=== PATIENT | male | born 1990 | race Caucasian/White ===

== ENCOUNTER 2016-08-07 22:51 | Emergency (ER) | payer SELFPAY ==
[~2016-08-07] VITALS: Ht 167.6 cm; Wt 70.0 kg
[2016-08-07] MEDS ORDERED: ONDANSETRON PF 4 MG/2 ML VIAL. ONE (23:27)
[2016-08-07] MEDS ORDERED: IV NORMAL SALINE 1,000ML 1,000 ML ONE (23:42)
[2016-08-07] MEDS ORDERED: ONDANSETRON PF 4 MG/2 ML VIAL. IV ONE (23:45)
--- NOTE | 2016-08-08 00:38 | PHYS DOC ---
General Chief Complaint: NAUSEA/VOMITING/DIARRHEA Stated Complaint: VOMITING,DIARRHEA,HEADACHE Time Seen by MD: 00:26 Source: patient, family Problems: History of Present Illness Initial Comments Patient here with sister for nausea vomiting or abdominal pain. Patient says it started earlier today. He says he had some black olives about 2:00, and about a half hour later he began to feel ill. He says he has had chills but no distinct fever. There is no runny nose or sore throat. He has no chest pain or shortness of breath. He's had copious episodes of emesis today, upwards of 10 episodes, without blood or bilious Valentin. He's been unable tolerate any by mouth food or fluids since onset. He also has severe crampy abdominal discomfort which is actually better now after administration of some IV fluids prior to physician evaluation. He's had 10-15 episodes of diarrhea as well without blood or loose chill. There is no change in bladder habits. He denies any focal extremity or neurologic complaints. Patient's done nothing at home for this and notes no factors other than the olives which may have increased or decreased his symptoms. He has no known sick contacts there is no other bad or spoiled food. At time of physician evaluation patient's already received some antiemetics and IV fluids. He's had no further emesis and no further diarrhea here in the ED. Patient's past medical history is otherwise unremarkable. He states he is a nonsmoker and nonuser of ethanol. Allergies: Coded Allergies: No Known Drug Allergies (Unverified , 10/10/15) Past Medical History Medical History: no pertinent history Social History Smoker: non-smoker Alcohol: none Review of Systems All Other Systems: Reviewed and Negative Physical Exam General Appearance: WD/WN, no apparent distress Neck: full range of motion, supple, normal inspection Respiratory: lungs clear, normal breath sounds, no respiratory distress Cardiovascular: regular rate, rhythm, no edema, no gallop Gastrointestinal: soft, no organomegaly, tenderness Back: no CVA tenderness, no vertebral tenderness Extremities: non-tender, normal inspection, no pedal edema Neurologic/Psychiatric: alert, normal mood/affect, oriented x 3 Skin: normal color Lymphatic: no adenopathy Comments Generally this is a well-developed well-nourished male in no acute distress. He is initially sleeping in the ED. He rouses easily, and when he does he complains of 7 out of 10 pain. Vitals are as noted. Pertinent finds on physical exam shows the chest to be clear to auscultation bilaterally. Cardiac exam shows regular rate and rhythm without murmur. The abdomen is soft. He is mildly diffusely tender without masses, organomegaly, or perineal findings. Back shows no CVA tenderness. Extremities are clear. He is awake alert and oriented when roused from sleep. Remainder of physical exam is clinically unremarkable. Orders, Labs, Meds Old charts note a single prior ER visit for groin pain. Labs today show mildly elevated white count with a left shift. I profile is stable. Acetone is negative. Abdominal series films show no acute changes per the emergency physician. 0135 Patient resting in the ER. He still complained of headache and some abdominal pain, but says he feels better. He's had no further vomiting or diarrhea in the ER, and just some nausea when he was moved for his abdominal x- ray. He was able tolerate by mouth ice chips here in the ED. I discussed with the patient is uncertain cause of his nausea vomiting or diarrhea. This may be food intolerance from the [place], or may be related to a gastrointestinal illness. In the event, his lungs he is able tolerate by mouth fluids, we have the option for discharge. He does look like he still feels fairly well, and I did offer them the option to be admitted and stay for further IV fluids and medications here in the hospital with this. He states he really wants to try to handle this at home if his labs look okay if he is not having anymore for vomiting. Apparently to his daughter's birthday and he feels very bad that he was in the bathroom most of the day. He does have a sister here who can take care of his daughter for a while is recovering. We will go ahead and give him prescriptions for Phenergan and Bentyl. He is very concerned about costs I will try to write for older and cheaper medications. He voices understanding of discharge plans including rest, increasing fluids, use of Advil or Tylenol as needed for fever or pain. He also voices understanding need to return immediately if worsening anyway, and that were happy to admit him as needed. He' ll also follow up with primary care. He does look unwell, resulted in the offer of admission, but given the situation of the day and his daughter's birthday think is making reasonable decisions for himself. As noted, he does voiced understanding need to return immediately if worsening anyway, and he can certainly be admitted at that time. He looks mildly unwell but stable, in no acute stress, and okay for discharge home per his preference. WILBERT SEO MD Aug 08, 2016 00:38
[2016-08-08 00:57] LABS: BASO # 0.1 x10^3/uL (0.0-0.2); BASO % 0 % (0-3); EOS # 0.1 x10^3/uL (0.0-0.7); EOS % 1 % (0-3); HEMATOCRIT 50.3 % (39.0-53.0); HEMOGLOBIN 17.1 g/dL (13.0-17.5); LYMPH # 0.5 x10^3/uL (1.0-4.8); LYMPH % 3 % (24-48); MEAN CORPUSCULAR HEMOGLOBIN 30 pg (25-35); MEAN CORPUSCULAR HGB CONC 34 g/dL (31-37); MEAN CORPUSCULAR VOLUME 87 fL (79-100); MONO # 0.8 x10^3/uL (0.0-1.1); MONO % 5 % (0-9); NEUT # 14.3 x10^3uL (1.8-7.7); NEUT % 90 % (31-73); PLATELET COUNT 294 x10^3/uL (140-400); RED BLOOD COUNT 5.77 x10^6/uL (4.30-5.70); RED CELL DISTRIBUTION WIDTH 13.3 % (11.5-14.5); WHITE BLOOD COUNT 15.8 x10^3/uL (4.0-11.0)
[2016-08-08] MEDS ORDERED: ONDANSETRON PF 4 MG/2 ML VIAL. IV ONE (01:00)
[2016-08-08] MEDS ORDERED: IV NORMAL SALINE 1,000ML 1,000 ML IV ONE ×3 (01:00)
[2016-08-08 01:04] LABS: ALBUMIN 4.8 g/dL (3.4-5.0); ALBUMIN/GLOBULIN RATIO 1.2 (1.0-1.7); CALCIUM 9.9 mg/dL (8.5-10.1); CREATININE 0.9 mg/dL (0.7-1.3); GFR 102.8; POTASSIUM 3.5 mmol/L (3.5-5.1); TOTAL BILIRUBIN 1.2 mg/dL (0.2-1.0); TOTAL PROTEIN 8.7 g/dL (6.4-8.2)
[2016-08-08 01:24] LABS: % BANDS 13 % (0-9); % LYMPHS 4 % (24-48); % MONOS 3 % (0-10); % SEGS 80 % (35-66); PLT ESTIMATE ADEQUATE (ADEQUATE)
[2016-08-08 01:55] VITALS: BP 100/50
[2016-08-08] MEDS ORDERED: DICYCLOMINE HCL 20 MG TABLET ONE (01:59)
[2016-08-08] MEDS ORDERED: DICYCLOMINE HCL 10 MG CAPSULE PO ONE (02:00)
[2016-08-08] MEDS ORDERED: PROMETHAZINE 25 MG TABLET. PO ONE (02:00)
[2016-08-08] MEDS ORDERED: DICYCLOMINE HCL 20 MG TABLET PO ONE (02:30)
--- NOTE | 2016-08-08 09:47 | RAD ---
Abdomen, 2 views, 08/08/2016: History: Abdominal pain with vomiting The abdominal gas pattern is unremarkable without evidence of obstruction. No free air seen in the abdomen. There is no evidence of organomegaly. Lower pelvic calcifications are compatible with phleboliths. The lung bases are clear. IMPRESSION: No acute abdominal abnormality is detected.
== END 2016-08-08 02:05 | disposition home or self-care (01) ==
LOC: ER 22:51
DX: R10.9 Unspecified abdominal pain (principal); R11.2 Nausea with vomiting, unspecified; R19.7 Diarrhea, unspecified; R51 Headache
CPT/HCPCS: 36415; 74020; 80053; 82010; 82150; 83690; 85007; 85027; 96361; 96374; 96375; 99285; J2405; Q0169; J7030

== ENCOUNTER 2016-11-09 13:35 | Emergency (ER) | payer OTHER ==
[2016-11-09 13:45] VITALS: BP 122/82
[2016-11-09] MEDS ORDERED: PENI500T PO (14:32)
--- NOTE | 2016-11-09 14:32 | PHYS DOC ---
Past History Past Medical History: No Pertinent History Past Surgical History: No Surgical History Alcohol Use: Rarely Drug Use: None Adult General Chief Complaint Chief Complaint: TOOTH ACHE OR PAIN [facility] Patient is a 26-year-old male who states he had 3 teeth pulled on , November 06. He had cavities in teeth 4 and 5, and they went ahead and pulled his wisdom tooth #1 while they were there because it was impacted. He was not started on antibiotics, he was given Tylenol No. 3, which is not helping the pain. He is having a lot of pain. He went the next day to the ER at [facility] to be seen for pain but states he waited 4 hours and ended up leaving without being seen. He has not been having fevers. He has not been taking ibuprofen. Patient has no chronic medical problems and is in good general health. He has no known allergies. Review of Systems Review of Systems Constitutional: Denies fever or chills [] Eyes: Denies change in visual acuity, redness, or eye pain [] HENT: Denies nasal congestion or sore throat [] Respiratory: Denies cough or shortness of breath [] Cardiovascular: No additional information not addressed in [facility] [] GI: Denies abdominal pain, nausea, vomiting, bloody stools or diarrhea [] : Denies dysuria or hematuria [] Musculoskeletal: Denies back pain or joint pain [] Integument: Denies rash or skin lesions [] Neurologic: Denies headache, focal weakness or sensory changes [] Endocrine: Denies polyuria or polydipsia [] Allergies Allergies Allergies Coded Allergies Type Severity Reaction Last Updated Verified No Known Drug Allergies 10/10/15 No Physical Exam Physical Exam Constitutional: Well developed, well nourished, no acute distress, non-toxic appearance. Talking without difficulty, swallowing without difficulty, no acute distress. HENT: Normocephalic, atraumatic, bilateral external ears normal, oropharynx moist, no oral exudates, nose normal. Mild amount of swelling on the right side of the face. No redness or warmth. Oral exam: Clot present in the site of dental extractions. No purulent drainage. No significant swelling of the surrounding gingiva. Eyes: conjunctiva normal, no discharge. [] Neck: Normal range of motion, no stridor. [] Skin: Warm, dry, no erythema, no rash. [] Extremities: No tenderness, no cyanosis, no clubbing, ROM intact, no edema. [] Neurologic: Alert and oriented X 3, normal motor function, normal sensory function, no focal deficits noted. [] EKG EKG [] Radiology/Procedures Radiology/Procedures [] Course & Med Decision Making Course & Med Decision Making Pertinent Labs and Imaging studies reviewed. (See chart for details) 26-year-old male who had 3 teeth pulled 4 days ago. He is concerned about the amount of swelling. I reassured him that it is normal to have a considerable amount of pain and swelling after having 3 molars extracted. We will start him on penicillin. Encouraged him to continue the saltwater rinses. I advised ibuprofen 800 mg every 8 hours for pain. To follow up with his dentist if not improving in the next 2-3 days. Note the patient showed me a "piece of tooth" that he had "pulled out" of one of his sites. It did not specifically appear to be a piece of tooth to me but I advised him if a piece of tooth did break off that he should discuss this with his dentist. [] Dragon Disclaimer Dragon Disclaimer This chart was dictated in whole or in part using Voice Recognition software in a busy, high-work load, and often noisy Emergency Department environment. It may contain unintended and wholly unrecognized errors or omissions. Departure Departure: Impression: Primary Impression: Pain, dental Disposition: 01 HOME, SELF-CARE Condition: STABLE Referrals: PCP,NO (PCP) Additional Instructions: Continue gentle swishes with salt water as you have been doing. Call for follow-up appointment with your dentist. Ibuprofen 800 mg (four OTC 200 mg tabs) every 8 hours for pain. We will start penicillin for possible infection. Take as directed. Scripts Penicillin V Potassium (PENICILLIN V POTASSIUM) 500 Mg Tablet 1 TAB PO TID for dental infection, #30 TAB Prov: SHAY SARKAR MD 11/09/16 SHAY SARKAR MD Nov 09, 2016 14:32
[2016-11-10] MEDS ORDERED: HYDR-971 PO (11:17)
== END 2016-11-09 14:35 | disposition home or self-care (01) ==
LOC: ER 13:35
DX: K08.89 Other specified disorders of teeth and supporting structures (principal); Z98.818 Other dental procedure status
CPT/HCPCS: 99283

== ENCOUNTER 2016-11-10 10:45 | Emergency (ER) | payer OTHER ==
[~2016-11-10] VITALS: Ht 172.7 cm; Wt 70.0 kg
[~2016-11-10 10:45] MED LIST: PENI500T PO
[2016-11-10 11:01] VITALS: BP 128/84
[2016-11-10] MEDS ORDERED: HYDR-971 PO (11:17)
--- NOTE | 2016-11-10 11:17 | PHYS DOC ---
Past History Past Medical History: No Pertinent History Past Surgical History: Other Alcohol Use: None Drug Use: None Adult General Chief Complaint Chief Complaint: DENTAL PROBLEM HPI HPI Patient is a 26 year old male who presents with dental pain. The patient reports he is 3 days s/p dental extraction of teeth 1, 4, 5 by a local dentist. He reports severe pain & swelling since time of extraction & has been unable to follow up due to holiday weekend. Seen here yesterday & given ibuprofen but states it's not helping. He denies fevers, vomiting, drainage. Review of Systems Review of Systems Constitutional: Denies fever HENT: Reports dental pain. Respiratory: Denies cough or shortness of breath Cardiovascular: Denies chest pain GI: Denies abdominal pain, nausea, vomiting Musculoskeletal: Denies back pain or joint pain Integument: Denies rash Neurologic: Denies headache Allergies Allergies Allergies Coded Allergies Type Severity Reaction Last Updated Verified No Known Drug Allergies 11/10/16 No Physical Exam Physical Exam Constitutional: Well developed, well nourished, appears to be in pain, non- toxic appearance. HENT: Normocephalic, atraumatic, bilateral external ears normal, oropharynx moist, absence of teeth 1, 4, 5, with mild gingival erythema, no abscess, mild right sided jaw swelling, no trismus, nose normal. Eyes: conjunctiva normal, no discharge. Neck: supple, no stridor. Cardiovascular: no edema. Lungs & Thorax: no respiratory distress. Abdomen: nondistended. Skin: Warm, dry, no erythema, no rash. Extremities: No deformity Neurologic: Alert and oriented X 3 Current Patient Data Vital Signs Vital Signs Date Time Temp Pulse Resp B/P (MAP) Pulse Ox O2 Delivery O2 Flow Rate FiO2 11/10/16 11:01 98.4 76 18 99 Room Air EKG EKG [] Radiology/Procedures Radiology/Procedures [] Course & Med Decision Making Course & Med Decision Making Pertinent Labs and Imaging studies reviewed. (See chart for details) The patient presents with dental pain. Not driving today. Gave norco for pain here, will give prescription for home use. Continue ice packs, ibuprofen TID, no drinking alcohol or driving while taking norco. Continue antibiotics which were prescribed at last ED visit. 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 Come back for difficulty breathing or swallowing, or any otherwise worsening condition. Discharged home in stable condition. [] Dragon Disclaimer Dragon Disclaimer This chart was dictated in whole or in part using Voice Recognition software in a busy, high-work load, and often noisy Emergency Department environment. It may contain unintended and wholly unrecognized errors or omissions. Departure Departure: Impression: Primary Impression: Pain, dental Disposition: HOME, SELF-CARE Condition: STABLE Referrals: PCP,GUICHO (PCP) Patient Instructions: Dental Pain, [id number] Additional Instructions: You were seen in the emergency department today for dental pain. Continue take ibuprofen 600 mg every 8 hours for pain. Apply ice packs. Use [place] for severe breakthrough pain. No drinking alcohol or driving while taking this medication. Follow-up with your dentist as soon as possible for further management. Scripts Hydrocodone Bit/Acetaminophen (NORCO 5-325 TABLET) 1 Each Tablet 1-2 TAB PO Q4-6HRS Y for SEVERE PAIN, #10 TAB Prov: LAURIE BOYCE MD 11/10/16 LAURIE BOYCE MD Nov 10, 2016 11:17
[2016-11-10] MEDS ORDERED: HYDROcodone/APAP 5/325MG 1 TAB TABLET PO ONE (11:30)
== END 2016-11-10 11:30 | disposition home or self-care (01) ==
LOC: ER 10:45
DX: K08.89 Other specified disorders of teeth and supporting structures (principal); Z98.818 Other dental procedure status
CPT/HCPCS: 99283

== ENCOUNTER 2021-05-21 21:49 | Emergency (ER) | payer SELFPAY ==
[~2021-05-21] VITALS: Ht 172.7 cm; Wt 70.0 kg
[~2021-05-21 21:49] MED LIST changes: +HYDR-3165 PO
[2021-05-21] MEDS ORDERED: IV NORMAL SALINE 1,000ML 1,000 ML IV ONE (23:00)
[2021-05-21 23:14] LABS: BASO # 0.2 x10^3/uL (0.0-0.2); BASO % 1 % (0-3); EOS # 0.2 x10^3/uL (0.0-0.7); EOS % 1 % (0-3); HEMATOCRIT 44.5 % (39.0-53.0); HEMOGLOBIN 14.9 g/dL (13.0-17.5); LYMPH # 4.4 x10^3/uL (1.0-4.8); LYMPH % 29 % (24-48); MEAN CORPUSCULAR HEMOGLOBIN 30 pg (25-35); MEAN CORPUSCULAR HGB CONC 34 g/dL (31-37); MEAN CORPUSCULAR VOLUME 88 fL (79-100); MONO # 1.1 x10^3/uL (0.0-1.1); MONO % 8 % (0-9); NEUT # 9.4 x10^3uL (1.8-7.7); NEUT % 62 % (31-73); PLATELET COUNT 465 x10^3/uL (140-400); RED BLOOD COUNT 5.06 x10^6/uL (4.30-5.70); RED CELL DISTRIBUTION WIDTH 13.7 % (11.5-14.5); WHITE BLOOD COUNT 15.2 x10^3/uL (4.0-11.0)
--- NOTE | 2021-05-21 23:16 | PHYS DOC ---
Past History Past Medical History: No Pertinent History (ANI RENDON APRN) Past Surgical History: Other (ANI RENDON APRN) Alcohol Use: None Drug Use: None (ANI RENDON APRN) Adult General Chief Complaint Chief Complaint: dizziness HPI HPI 30-year-old male presents to ED via POV with complaints of an episode of dizziness, nausea, difficulty breathing, and altered mental status for a couple of minutes after cleaning out his truck today. He states that he did not lose consciousness and was aware of all events that happened, but that he just cannot speak. He states that this has happened several years ago, but that he did not follow-up with a provider. Family took his blood pressure at home and could not get a reading x2 so they brought him to the ED to be evaluated for hypotension. Patient denies any other past medical history besides a childhood heart murmur. He denies current chest pain, dizziness, cough, headache, fever, nausea, or vomiting. He states that he was having dizziness earlier which was worse with position changes and states that he is experiencing shakiness currently. He had a tooth extraction earlier today and took 1 tramadol at 1600. He states that he has not had problems with taking tramadol in the past. (ANI RENDON APRN) Review of Systems Review of Systems Constitutional: Denies fever or chills [] Eyes: Denies change in visual acuity, redness, or eye pain [] HENT: Denies nasal congestion or sore throat [] Respiratory: Denies cough or shortness of breath [] Cardiovascular: No additional information not addressed in HPI [] GI: Denies abdominal pain, nausea, vomiting, bloody stools or diarrhea [] : Denies dysuria or hematuria [] Musculoskeletal: Denies back pain or joint pain [] Integument: Denies rash or skin lesions [] Neurologic: Denies headache, focal weakness or sensory changes, moves all extremities equally [] All other systems were reviewed and found to be within normal limits, except as documented in this note. (ANI RENDON APRN) Allergies Allergies Allergies Coded Allergies Type Severity Reaction Last Updated Verified No Known Drug Allergies 11/10/16 No (ANI RENDON APRN) Physical Exam Physical Exam Constitutional: Well developed, well nourished, no acute distress, non-toxic appearance. [] HENT: Normocephalic, atraumatic, bilateral external ears normal, no oral exudates, nose normal. [] Eyes: PERRL, EOMI, conjunctiva normal, no discharge. [] Neck: Normal range of motion, no tenderness, supple, no stridor. [] Cardiovascular: Heart rate regular rhythm, no murmur [] Lungs & Thorax: Bilateral breath sounds clear to auscultation [] Abdomen: Bowel sounds normal, soft, no tenderness, no masses, no pulsatile masses. [] Skin: Warm, dry, no erythema, no rash. [] Back: No tenderness, no CVA tenderness. [] Extremities: No tenderness, no cyanosis, no clubbing, ROM intact, no edema. [] Neurologic: Alert and oriented X 3, moves all extremities equally Psychologic: Affect normal, judgement normal, mood normal. [] (ANI RENDON APRN) Current Patient Data Vital Signs Vital Signs Date Time Temp Pulse Resp B/P (MAP) Pulse Ox O2 Delivery O2 Flow Rate FiO2 05/21/21 22:21 99.4 64 18 114/54 (74) 100 (ANI RENDON APRN) EKG EKG Sinus rhythm with heart rate at 60 bpm, no STEMI, QTC is 410, EKG read per Dr. Ocampo. [] (NAI RENDON APRN) Radiology/Procedures Radiology/Procedures [] (ANI RENDON APRN) Heart Score C/O Chest Pain: No Risk Factors: Risk Factors: DM, Current or recent (<one month) smoker, HTN, HLP, family history of CAD, obesity. Risk Scores: Risk Factors: DM, Current or recent (<one month) smoker, HTN, HLP, family history of CAD, obesity. (ANI RENDON APRN) Course & Med Decision Making Course & Med Decision Making 30-year-old male presents to ED via POV with complaints of dizziness and an episode of altered mental status prior to arrival lasting approximately 2 minutes. The episode was witnessed and the patient did not lose consciousness. But did not respond to verbal coaxing. Patient's eyes remained open the entire episode. He only complains of dizziness with position changes upon assessment. Patient was brought in by family after they attempted to obtain a blood pressure and were unable to get readings x2. Blood pressure was 114/55 upon arrival and all other vitals were stable. EKG with sinus rhythm with a heart rate of 60. Orthostatic vital signs, lab work, chest x-ray, and 1 L NS bolus were ordered. Patient receiving normal saline 1 L bolus and blood pressure is 104/60. WBCs were 15.2 and potassium was 2.9. Patient received 60 mEQ PO potassium. Discussed patient case with next provider at 0015 and ordered rapid covid and flu swab. (ANI RENDON APRN) Course & Med Decision Making See notes for details prior shift change. - by Alina. Pt. currently requesting discharge. Symtoms have reslolved. Pt. follow up pending flu and COVID tests Impression: 1. Viral Syndrome 2. Leukocytosis 15.2 with [place] 12 3. Hypokalemia 2.9 4. Dehydration. (QUENTIN OCAMPO MD) Dragon Disclaimer Dragon Disclaimer This electronic medical record was generated, in whole or in part, using a voice recognition dictation system. (ANI RENDON APRN) Departure Departure: Referrals: HARPREET MOHAMUD (PCP) Scripts Ondansetron (ONDANSETRON ODT) 4 Mg Tab.rapdis 8 MG PO QIDPRN for n/v, #30 TAB Prov: QUENTIN OCAMPO MD 05/22/21 Attending Co-Sign Attending Co-Sign The patient was seen and interviewed as well as examined at the bedside. The chart was reviewed. The case was discussed. Agree with the plan of care. (QUENTIN OCAMPO MD) Attending Signature Attending Signature I have participated in the care of this patient and I have reviewed and agree with all pertinent clinical information above including history, exam, and recommendations. (QUENTIN OCAMPO MD) Dragon Disclaimer This chart was dictated in whole or in part using Voice Recognition software in a busy, high-work load, and often noisy Emergency Department environment. It may contain unintended and wholly unrecognized errors or omissions. (QUENTIN OCAMPO MD) ANI RENDON APRN May 21, 2021 23:16 QUENTIN OCAMPO MD May 22, 2021 01:24
[2021-05-21 23:19] LABS: CALCIUM 9.3 mg/dL (8.5-10.1); CREATININE 1.1 mg/dL (0.7-1.3); GFR 79.1
[2021-05-21 23:26] LABS: POTASSIUM 2.9 mmol/L (3.5-5.1)
[2021-05-21] MEDS ORDERED: POTASSIUM CHLORIDE 20 MEQ TABLET.ER. PO ONE (23:45)
--- NOTE | 2021-05-21 23:50 | RAD ---
EXAM: CHEST ONE VIEW. HISTORY: Dizziness. COMPARISON: None. FINDINGS: A frontal view of the chest is obtained. There are no confluent infiltrates. There is no pneumothorax or pleural effusion. The heart is not en larged. Calcified right hilar lymph nodes are consistent with old granulomatous disease. IMPRESSION: 1. No confluent infiltrates. Electronically signed by: Shila Caldera MD (05/21/2021 11:47 PM) [id number]
[2021-05-21 23:53] LABS: % EOS 1 % (0-5); % LYMPHS 35 % (24-48); % MONOS 12 % (0-10); % SEGS 52 % (35-66)
[2021-05-21 23:54] LABS: ANISOCYTOSIS MOD; PLATELET CLUMP PRESENT; PLT ESTIMATE ADEQUATE (ADEQUATE)
--- NOTE | 2021-05-22 01:04 | EKG ---
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
[2021-05-22] MEDS ORDERED: POTASSIUM CHLORIDE 20 MEQ TABLET.ER. PO ONE (01:30)
[2021-05-22] MEDS ORDERED: ONDA4TAB12 PO (01:33)
[2021-05-22 01:45] LABS: INFLUENZA A PATIENT NEGATIVE (NEGATIVE); INFLUENZA B PATIENT NEGATIVE (NEGATIVE)
[2021-05-22 02:00] VITALS: BP 112/61
== END 2021-05-22 02:03 | disposition home or self-care (01) ==
LOC: ER 21:49
DX: B34.9 Viral infection, unspecified (principal); D72.829 Elevated white blood cell count, unspecified; E86.0 Dehydration; E87.6 Hypokalemia; Z20.822 Contact with and (suspected) exposure to COVID-19
CPT/HCPCS: 36415; 71045; 80048; 83605; 85007; 85025; 87428; 93005; 96360; 99285; J7030